=== PATIENT | male | born 1980 | race Caucasian/White ===

== ENCOUNTER 2022-06-15 18:46 | Emergency (ER) | payer BC ==
[2022-06-15] MEDS ORDERED: Ibuprofen 600 MG Tab PO ONE (20:16)
== END 2022-06-15 20:26 | disposition home or self-care (01) ==
LOC: MW.ED 18:46
DX: M79.671 Pain in right foot (principal); Z88.0 Allergy status to penicillin; Z88.8 Allergy status to other drugs, medicaments and biological substances
CPT/HCPCS: 73610; 99283; A9270